=== PATIENT | female | born 1980 | race Caucasian/White ===

== ENCOUNTER 2020-09-21 11:38 | Outpatient (REF) | payer OTHER, SELFPAY | END 2020-09-21 11:39 | disposition home or self-care (01) | LOC: HO.HMGCLNP 11:38 | PROVIDERS: Visit Provider Nurse Practitioner Family | DX: B77.9 Ascariasis, unspecified (principal) | CPT/HCPCS: 87177; 87209 ==

== ENCOUNTER 2020-09-27 09:27 | Outpatient (REF) | payer OTHER, SELFPAY | END 2020-09-27 09:28 | disposition home or self-care (01) | LOC: HO.LAB 09:27 | PROVIDERS: Visit Provider Nurse Practitioner Family | DX: B77.9 Ascariasis, unspecified (principal) | CPT/HCPCS: 36415; 87045; 87046; 87177; 87209 ==

== ENCOUNTER 2025-03-06 14:12 | Outpatient (AMB) | payer OTHER, SELFPAY ==
--- NOTE | 2025-03-06 14:16 | MHC.OFFWIV ---
Intake Vital Signs 03/06/25 14:17 Height 5 ft 3 in Weight 219 lb BMI 38.8 BP 142/82 H Blood Pressure Location Rt brachial Position Sitting Pulse 73 Pulse Source Pulse Oximeter Temp 98.2 F Temp Source Oral Pulse Oximetry (%) 100 Oxygen Delivery Method Room Air Intake Visit Reasons: EP-?sinus infection Intake Note: patient presents with pain to bridge of nose for 11 days with minimal post nasal drip Patient Tobacco Use Status: Never used Tobacco Allergies No Known Allergies Allergy (Verified 03/06/25 14:23) Do you need a note to return to daycare/school/sports/work: No HPI HPI Comments History of Present Illness Details History of Present Illness - The patient is a 44-year-old female presenting with facial pain and pressure, suspecting ethmoid sinusitis. - The issue began on February 23, with severe pain upon waking, making it difficult to touch the side of her nose. - The patient had traveled and slept with a fan on, which may have contributed to the condition. - She reports a sensation of pressure, particularly when bending over, and soreness along the center of her face. - The patient has been managing the pain with oregano oil, Tylenol, and ibuprofen, and uses Flonase for nasal relief. - There is no significant nasal discharge beyond her usual seasonal allergies. - The symptoms have persisted for an extended period, indicating a need for treatment. - She denies fever, chills, dizziness, CP, SOB abd pain, n/v/d, ear pain, or sore throat. - She denies sick contacts. Physical Exam General: Cooperative, healthy appearing, comfortable, no acute distress and well developed Head: Normal to inspection Ears: Hearing grossly normal bilaterally. No tragus or mastoid tenderness noted. Auditory canals clear bilaterally. TM's normal, not bulging. No fluid noted. Nose: Normal external nose present. Moist mucosa. Turbinates normal bilaterally, not boggy. Face and sinus: Tenderness to palpation of the frontal and maxillary sinuses bilaterally. Neck: Normal visual inspection and Yes full ROM. No lymphadenopathy noted. Respiratory: Normal respiratory effort and able to speak in complete sentences. Clear to auscultation bilaterally Cardiovascular: Regular rate and rhythm. Normal S1 and S2 GI: Normal to inspection. Soft to palpation and nontender, nondistended. No guarding noted. Skin: No rashes or lesions noted [facility] Social History Patient Tobacco Use Status: Never used Tobacco Review of Systems Const All systems reviewed & are unremarkable except as noted in HPI and below Physical Exam Vital Signs: Last Vital Signs Temp 98.2 F 03/06/25 14:17 Pulse 73 03/06/25 14:17 BP 142/82 H 03/06/25 14:17 Pulse Ox 100 03/06/25 14:17 Oxygen Delivery Method Room Air 03/06/25 14:17 BMI result Body Mass Index 38.8 Assessment & Plan Assessment & Plan (1) Sinusitis: Code(s): J32.9 - Chronic sinusitis, unspecified Qualifiers: Sinusitis location: unspecified location Chronicity: acute Recurrence: non-recurrent Qualified Code(s): J01.90 - Acute sinusitis, unspecified Plan Most likely sinusitis Plan- - steam showers - tylenol or motrin as needed - continue with Flonase - Augmentin BID for 7 days - follow up if pain continues after antibiotics Medications: New amoxicillin-pot clavulanate 875-125 mg 1 tab PO Q12H 14 tabs 0RF 7 days Coding Level of Care Code Est Pt Level 3 (24082) Diagnoses Acute non-recurrent sinusitis, unspecified location J01.90 Sinusitis location: unspecified location Chronicity: acute Recurrence: non-recurrent
[2025-03-06 14:17] VITALS: BP 142/82; PULSE 73; TEMP 36.8; O2SAT 100; BMI 38.8
== END 2025-03-06 15:07 | disposition home or self-care (01) ==
PROVIDERS: Visit Provider Physician Assistant Medical
DX: J01.90 Acute sinusitis, unspecified (principal)

== ENCOUNTER → 2025-03-06 14:12 | Outpatient (BNVA) | payer OTHER, SELFPAY | PROVIDERS: Visit Provider Physician Assistant Medical | DX: J01.90 Acute sinusitis, unspecified (principal) | CPT/HCPCS: 99212 ==